=== PATIENT | female | born 1950 | race Caucasian/White ===

== ENCOUNTER 2016-10-11 13:45 | Emergency (ER) | payer OTHER ==
[2016-10-11 13:45] VITALS: BMI 26.2
--- NOTE | 2016-10-11 14:29 | C.PDOC ---
History Of Present Illness 66 yr old female presents to the ER with complaints of right arm pain for the past 8-12 days, Patient states the pain decreases once the arm gets past the midline point but has difficulty raising her arm to the point. Patient denies trauma or fall, chest pain, SOB, nausea, vomiting, weakness or numbness. Time Seen by Provider: 10/11/16 14:19 Chief Complaint (Nursing): Upper Extremity Problem/Injury History Per: Patient History/Exam Limitations: no limitations Onset/Duration Of Symptoms: Days (8-12) Current Symptoms Are (Timing): Still Present Past Medical History Reviewed: Historical Data, Nursing Documentation, Vital Signs Vital Signs: Last Vital Signs Temp 98.2 F 10/11/16 14:05 Pulse 85 10/11/16 14:05 Resp 16 10/11/16 14:05 BP 143/75 10/11/16 14:05 Pulse Ox 100 10/11/16 15:12 - Medical History PMH: HTN, Hypercholesterolemia, Osteoporosis Family History: States: No Known Family Hx - Social History Hx Alcohol Use: No Hx Substance Use: No Review Of Systems Except As Marked, All Systems Reviewed And Found Negative. Cardiovascular: Negative for: Chest Pain Respiratory: Negative for: Shortness of Breath Gastrointestinal: Negative for: Nausea, Vomiting Musculoskeletal: Positive for: Arm Pain (Right arm pain ). Negative for: Back Pain Neurological: Negative for: Weakness, Numbness Physical Exam - Physical Exam Appears: Well, Non-toxic, No Acute Distress Skin: Warm, Dry Head: Atraumatic, Normacephalic Oral Mucosa: Moist Neck: Normal, Normal ROM, Supple Chest: Symmetrical, No Tenderness Cardiovascular: Rhythm Regular Respiratory: Normal Breath Sounds, No Rales, No Rhonchi, No Stridor, No Wheezing Extremity: Normal ROM, Tenderness (Tenderness to the anterior right rotator cuff ), No Deformity, No Swelling Neurological/Psych: Oriented x3, Normal Speech, Normal Motor ED Course And Treatment O2 Sat by Pulse Oximetry: 100 - Other Rad X-Ray - Right Shoulder X-Ray: Viewed By Me, Read By Radiologist Interpretation: PROCEDURE: Radiographs of the Right Shoulder. HISTORY: pain with motion. COMPARISON: None available. FINDINGS: BONES: No acute displaced fracture. The distal clavicle and underlying ribs appear intact. Degenerative changes of the included portions thoracic spine. JOINTS: No acute dislocation. Acromioclavicular arthropathy. Glenohumeral joint space narrowing. SOFT TISSUES: Soft tissues appear unremarkable. No evidence of radiopaque foreign body. IMPRESSION: Degenerative changes including joint space narrowing and acromioclavicular arthropathy. No acute displaced fracture or dislocation evident. If symptoms persist or if there is continued clinical concern, x-ray follow-up in 7-10 days should be considered. Medical Decision Making Medical Decision Making: PLAN: * X-Ray - Right Shoulder * Motrin PO * Tylenol PO * Patient feeling better, more ample range of motion. will d/c with clinic follow up, she will need physical therapy. Disposition Counseled Patient/Family Regarding: Studies Performed, Diagnosis, Need For Followup, Rx Given - Disposition Referrals: [facility] [Outside] Disposition: HOME/ ROUTINE Disposition Time: 15:54 Condition: STABLE Prescriptions: Ibuprofen [Motrin] 600 mg PO TID #15 tab traMADol/Acetaminophen [Ultracet 37.5/325 mg] 1 tab PO TID PRN #20 tab PRN Reason: pain Instructions: Shoulder Pain (ED), Tendinitis (ED) Forms: General Discharge Instructions - Clinical Impression Clinical Impression: Shoulder pain, right, Tendinitis - Scribe Statement The provider has reviewed the documentation as recorded by the Phoebe Guzman Provider Attestation: All medical record entries made by the Phoebe were at my direction and personally dictated by me. I have reviewed the chart and agree that the record accurately reflects my personal performance of the history, physical exam, medical decision making, and the department course for this patient. I have also personally directed, reviewed, and agree with the discharge instructions and disposition.
--- NOTE | 2016-10-11 15:05 | RAD ---
PROCEDURE: Radiographs of the Right Shoulder HISTORY: pain with motion COMPARISON: None available. FINDINGS: BONES: No acute displaced fracture. The distal clavicle and underlying ribs appear intact. Degenerative changes of the included portions thoracic spine. JOINTS: No acute dislocation. Acromioclavicular arthropathy. Glenohumeral joint space narrowing. SOFT TISSUES: Soft tissues appear unremarkable. No evidence of radiopaque foreign body. IMPRESSION: Degenerative changes including joint space narrowing and acromioclavicular arthropathy. No acute displaced fracture or dislocation evident. If symptoms persist or if there is continued clinical concern, x-ray follow-up in 7-10 days should be considered.
[2016-10-11 16:40] VITALS: BP 148/80; PULSE 77; RESP 18; TEMP 98.4; O2SAT 96
== END 2016-10-11 16:40 | disposition home or self-care (01) ==
LOC: C.ER 13:45
DX: M75.91 Shoulder lesion, unspecified, right shoulder (principal); M25.511 Pain in right shoulder

== ENCOUNTER 2017-04-23 09:34 | Emergency (ER) | payer OTHER ==
[2017-04-23 09:40] VITALS: BMI 27.1
--- NOTE | 2017-04-23 10:38 | C.PDOC ---
History Of Present Illness 67 year old female with a history of HTN presents to the ED for evaluation of high blood pressure. Patient was referred to the ED from the clinic this morning for elevated blood pressure during her routine check up. She notes she only checks her blood pressure during appointment. Patient last had her blood pressure checked 8 days prior and notes it was "in the 200s." She denies chest pain, shortness of breath, headache, visual changes, weakness, numbness, or any complaints at this time. Time Seen by Provider: 04/23/17 09:52 Chief Complaint (Nursing): High Blood Pressure History Per: Patient History/Exam Limitations: no limitations Onset/Duration Of Symptoms: Hrs Current Symptoms Are (Timing): Still Present Associated Symptoms: denies: Chest Pain, Dyspnea, Dizziness, Blurred Vision, Focal Weakness, Headache Quality Of Symptoms: Asymptomatic Pain Scale Rating Of: 0 Exacerbating Factor(s): Pos: None Recent travel outside of the [place]: No Additional History Per: Prior Records Past Medical History Reviewed: Historical Data, Nursing Documentation, Vital Signs Vital Signs: Last Vital Signs Temp 97.8 F 04/23/17 11:33 Pulse 73 04/23/17 11:33 Resp 16 04/23/17 11:33 BP 193/96 H 04/23/17 11:33 Pulse Ox 99 04/23/17 11:33 - Medical History PMH: HTN, Hypercholesterolemia, Osteoporosis Family History: States: Unknown Family Hx - Social History Hx Alcohol Use: No Hx Substance Use: No Review Of Systems Constitutional: Negative for: Fever, Chills Cardiovascular: Negative for: Chest Pain, Palpitations Respiratory: Negative for: Cough, Shortness of Breath Gastrointestinal: Negative for: Nausea, Vomiting, Abdominal Pain Neurological: Negative for: Weakness, Numbness Physical Exam - Physical Exam Additional Physical Exam Comments: Constitutional: No acute distress. Head: Normocephalic. Atraumatic. Eyes: PERRL. ENT: Moist mucous membranes. Neck: Supple. Cardiovascular: Regular rate. Radial pulse 2+ bilaterally. Chest: No tenderness. Respiratory: Clear to auscultation bilaterally. GI: Soft. Nontender. Nondistended. Back: No CVA tenderness. Musculoskeletal: No tenderness or swelling of extremities. Skin: No rash. Neurologic: Alert, no focal deficit.Oriented x 3. CN II to XII intact. Motor 5/5 x 4. Sensation to light touch intact bilaterally. Gait normal. ED Course And Treatment - Laboratory Results Result Diagrams: 04/23/17 10:29 O2 Sat by Pulse Oximetry: 98 (RA) Progress Note: EKG, CXR, UA, and blood work was ordered. Medical Decision Making Medical Decision Making: EKG NSR 75 bpm, no ST/T wave changes. IMPRESSION: Heart size appears top normal. Ectatic aorta. No focal consolidation, significant pleural effusion, or definite pneumothorax identified. Patient in no distress and with no symptoms. Will discharge, f/u primary care for further management of chronic HTN. Instructed to return to the ED for chest pain, dyspnea, vomiting, vision change, numbness, weakness, headache, or any other problem. Disposition Counseled Patient/Family Regarding: Studies Performed, Diagnosis, Need For Followup - Disposition Referrals: Lise Pham MD [Staff Provider] - Disposition: HOME/ ROUTINE Disposition Time: 12:01 Condition: STABLE Instructions: Chronic Hypertension (ED) Forms: [employer] (Moroccan) - Clinical Impression Clinical Impression: Asymptomatic hypertension - Scribe Statement The provider has reviewed the documentation as recorded by the Scribe Myrtle Dutta All medical record entries made by the Scribe were at my direction and personally dictated by me. I have reviewed the chart and agree that the record accurately reflects my personal performance of the history, physical exam, medical decision making, and the department course for this patient. I have also personally directed, reviewed, and agree with the discharge instructions and disposition.
[2017-04-23 10:53] LABS: CHLORIDE 100 mmol/L (98-107)
[2017-04-23 10:54] LABS: SODIUM 137 mmol/L (132-148)
[2017-04-23 10:56] LABS: GFR AFRICAN-AMERICAN > 60
[2017-04-23 10:57] LABS: ALB/GLOB RATIO 1.3 (1.0-2.1); ALKALINE PHOSPHATASE 74 U/L (38-126); ALT/SGPT 33 U/L (9-52); AST/SGOT 25 U/L (14-36); BILIRUBIN,TOTAL 0.8 mg/dL (0.2-1.3); BLOOD UREA NITROGEN 14 mg/dL (7-17); CALCIUM 9.5 mg/dl (8.6-10.4); CARBON DIOXIDE 27 mmol/L (22-30); GLUCOSE,RANDOM 93 mg/dL (65-105); TOTAL PROTEIN 7.7 g/dL (6.3-8.3)
[2017-04-23 11:06] LABS: RBC URINE < 1 /hpf (0-3); URINE BILIRUBIN NEGATIVE (NEGATIVE); URINE BLOOD NEGATIVE (NEGATIVE); URINE COLOR Straw (YELLOW); URINE GLUCOSE (UA) NORMAL (Normal); URINE KETONE NEGATIVE (NEGATIVE); URINE LEUKOCYTE ESTERASE NEG Leu/uL (Negative); URINE PROTEIN NEGATIVE (NEGATIVE); URINE UROBILINOGEN NORMAL mg/dL (0.2-1.0); WBC URINE 1 /hpf (0-5)
[2017-04-23 11:34] VITALS: BP 193/96; PULSE 73; RESP 16; TEMP 97.8
--- NOTE | 2017-04-23 11:59 | RAD ---
HISTORY: HTN COMPARISON: None available. TECHNIQUE: Chest, one view. FINDINGS: Examination limited by habitus and hypoinflation. LUNGS: No focal consolidation. Please note that chest x-ray has limited sensitivity for the detection of pulmonary masses. PLEURA: No significant pleural effusion identified. No definite pneumothorax . CARDIOVASCULAR: Heart size appears top normal. Ectatic aorta. OSSEOUS STRUCTURES: Degenerative changes of the spine and shoulders. VISUALIZED UPPER ABDOMEN: Unremarkable. OTHER FINDINGS: None. IMPRESSION: Heart size appears top normal. Ectatic aorta. No focal consolidation, significant pleural effusion, or definite pneumothorax identified.
[2017-04-23 12:02] VITALS: O2SAT 98
--- NOTE | 2017-04-25 17:43 | CARD ---
APPROVED REPORT EKG Measurement Heart [id number] <Conclusion> Normal sinus rhythm Normal ECG
== END 2017-04-23 12:15 | disposition home or self-care (01) ==
LOC: C.ER 09:34
DX: I10 Essential (primary) hypertension (principal); E78.00 Pure hypercholesterolemia, unspecified; M81.0 Age-related osteoporosis without current pathological fracture

== ENCOUNTER 2018-11-19 09:06 | Outpatient (CLI) | payer OTHER | END 2018-11-19 09:07 | disposition home or self-care (01) | LOC: C.MAMMO 09:06 | DX: Z12.31 Encounter for screening mammogram for malignant neoplasm of breast (principal) ==